=== PATIENT | female | born 1980 | race Caucasian/White ===

== ENCOUNTER 2016-07-28 12:13 | Inpatient (IN) | payer BC ==
[~2016-07-28] VITALS: Ht 165.1 cm; Wt 130.6 kg
[~2016-07-28 12:13] MED LIST: NF-ESOM40C PO; RECLIPSEN PO; [UNRECOGNIZED DRUG - OTHER] PO
[2016-08-07] VITALS (7 sets, daily range): BP systolic 131–165; BP diastolic 68–83
--- OUTSIDE RECORDS SUMMARY | 2016-08-07 18:22 | XMS REPORT | Continuity of Care Document ---
Author Author Brooke Cox Address Unknown Phone Unavailable Care Team Providers Care Ink Grinder Name Role Phone [employer] Unavailable Unavailable Problems Problem Status Onset Date Classification Date Reported Comments Source No data available for this section Problem 07/18/2015 [facility] Medications Allergies, Adverse Reactions, Alerts Immunizations Immunization Date Given Site Status Last Updated Comments Source No data available for this section No data available for this section [facility]. Results Vital Signs Encounters Location Location Details Encounter Type Encounter Number Reason For Visit Attending Provider ADM Date DC Date Status Source [facility] [id number] Outpatient [id number] Efrain Starkey 07/14/2015 07/14/2015 Active [facility]. Procedures Procedure Code Date Perfomer Comments Source No data available for this section [facility]. Plan of Care Social History Assessment and Plan Family History Value Date Source Advance Directives Order Name Results Value Date Source
[2016-08-07] MEDS ORDERED: D5 LR IV SOLUTION 0 ML IV ONE (18:49)
[2016-08-07 19:10] LABS: BASOPHILS % (AUTO) 0 % (0-10); EOSINOPHILS # (AUTO) 0.1 10^3/uL (0.0-0.3); EOSINOPHILS % (AUTO) 1 % (0-10); LYMPHOCYTES # (AUTO) 2.9 X 10^3 (1.0-4.0); LYMPHOCYTES % (AUTO) 22 % (12-44); MEAN CORPUSCULAR HEMOGLOBIN 29 PG (25-34); MEAN CORPUSCULAR HGB CONC 33 G/DL (32-36); MEAN CORPUSCULAR VOLUME 89 FL (80-99); MEAN PLATELET VOLUME 9.4 FL (7.4-10.4); MONOCYTES # (AUTO) 0.5 X 10^3 (0.0-1.0); MONOCYTES % (AUTO) 4 % (0-12); NEUTROPHILS # (AUTO) 9.7 X 10^3 (1.8-7.8); NEUTROPHILS % (AUTO) 73 % (42-75); PLATELET COUNT 371 10^3/uL (130-400); RED BLOOD COUNT 4.01 10^6/uL (4.35-5.85); RED CELL DISTRIBUTION WIDTH 14.5 % (10.0-14.5); WHITE BLOOD COUNT 13.3 10^3/uL (4.3-11.0)
[2016-08-07] MEDS ORDERED: LACTATED RINGERS 1,000 ML IV SCH (19:39)
[2016-08-07 19:41] LABS: ALANINE AMINOTRANSFERASE 11 U/L (0-55); ALBUMIN 3.1 G/DL (3.2-4.5); ANION GAP 13 MMOL/L (5-14); ASPARTATE AMINO TRANSFERASE 13 U/L (5-34); BILIRUBIN,TOTAL 0.2 MG/DL (0.1-1.0); BLOOD UREA NITROGEN 9 MG/DL (7-18); BUN/CREATININE RATIO 12; CALCIUM 9.2 MG/DL (8.5-10.1); CARBON DIOXIDE 18 MMOL/L (21-32); CHLORIDE 108 MMOL/L (98-107); CREATININE SERUM 0.73 MG/DL (0.60-1.30); GFR ESTIMATED > 60; GLUCOSE 100 MG/DL (70-105); POTASSIUM 3.6 MMOL/L (3.6-5.0); SODIUM 139 MMOL/L (135-145); TOTAL PROTEIN 6.3 G/DL (6.4-8.2); URIC ACID 5.9 MG/DL (2.6-7.2)
[2016-08-07] MEDS ORDERED: TERBUTALINE INJ 1 MG/ML (BRETHINE) AMP SC PRN (19:45)
[2016-08-07] MEDS ORDERED: MISOPROSTOL 100 MCG (CYTOTEC) TAB PO ONE (19:45)
[2016-08-07] MEDS ORDERED: D5 LR IV SOLUTION 1,000 ML IV ONE (20:19)
[2016-08-07] MEDS: D5 LR IV SOLUTION 1,000 ML IV SCH (20:30)
[2016-08-07] MEDS ORDERED: PREN1TAB19 PO (20:37)
[2016-08-07] MEDS ORDERED: LANS30CA43 PO (20:37)
[2016-08-07] MEDS ORDERED: ERGO400C PO (20:37)
[2016-08-07] MEDS ORDERED: CYCL10TA9 PO (20:37)
[2016-08-07] MEDS ORDERED: METF-478 PO (20:37)
[2016-08-07] MEDS ORDERED: LEVO25TA5 PO (20:37)
[2016-08-08] VITALS (45 sets, daily range): BP systolic 122–163; BP diastolic 63–99
[2016-08-08] MEDS: MISOPROSTOL 100 MCG (CYTOTEC) TAB PO SCH ×2 (00:30→04:30)
[2016-08-08] MEDS: D5 LR IV SOLUTION 1,000 ML IV SCH ×2 (04:27→12:22)
[2016-08-08] MEDS ORDERED: OXYTOCIN/NORMAL SALINE 500 ML IV ONE ×3 (07:53→16:54)
[2016-08-08] MEDS ORDERED: OXYTOCIN/NORMAL SALINE 500 ML IV SCH (08:00)
--- NOTE | 2016-08-08 08:34 | History & Physical-OB ---
OB - Chief Complaint & HPI Date Date of Admission: Date of Admission: Aug 07, 2016 at 6:17 pm Chief Complaint/History OB-Reason for Admission/Chief: Induction of Labor Hx : 2 Hx Para: 0 Expected Date of Delivery: Aug 25, 2016 Gestational Age in Weeks: 37 Indication for induction: medical complication Other reason for admission: Oligohydramnios Admission Nurse Assessment Rev: Yes History of Labs O pos Antibody neg RI RPR NR HBsAg HIV NR GC neg GBS neg Allergies and Home Medications Allergies Coded Allergies: acetaminophen (Unverified Allergy, 10/28/12) Home Medications Cholecalciferol (Vitamin D3) 400 Unit Capsule 400 UNIT PO DAILY (Reported) Cyclobenzaprine HCl 10 Mg Tablet 10 MG PO HS (Reported) Lansoprazole 30 Mg Capsule.dr 30 MG PO DAILY (Reported) Levothyroxine Sodium 25 Mcg Tablet 25 MCG PO DAILY (Reported) Metformin HCl 500 Mg Tab.er.24 1,000 MG PO DAILY (Reported) Vit/Iron Fumarate/FA 1 Each Tablet 1 EACH PO DAILY (Reported) OB - History Hx of Present Care: Yes Ultrasounds: Abnormal US findings Abnormal Ultrasound Findings: Oligohydramnios 4.6 cm Obstetrical Complications: Gestational Hypertension Medical Complications: Other (Obesity) Patient Past Medical History hypothyroidism, PCOS, insulin resistance Social History/Family History Recent Infectious Disease Expo: No Alcohol Use: Denies Use Recreational Drug Use: No Immunizations Date of Influenza Vaccine: Apr 04, 2016 OB - Admission Exam Physical Exam Vitals: Vital Signs 08/08/16 05:44 Temp 98.5 Pulse 79 Resp 20 B/P 154/74 O2 Delivery Room Air HEENT: NCAT Heart: Rhythm Normal Lungs: Clear Abdomen: Gravid Extremities: Normal Reflexes: Normal Cervical Dilatation: Fingertip Effacement: 50% Station: -2 Membranes: Intact Heart Rate: 130's Accelerations: Accelerations Present Decelerations: No Decelerations Short Term Variability: Present Data Warehouse Specialist Variability: Average (6-25) Contractions on Admission: >10 Minutes Apart Intensity: Mild Strickland Scoring Tool (Modified) Dilation (cm): 0/Closed (0) Effacement (%): 51-79% (2) Descent/Station: -2 (1) Cervix Consistency: Soft (2) Cervix Position: Middle/Mid-Position (1) Strickland Score: 5 Labs Laboratory Tests Test 08/07/16 18:30 08/07/16 18:55 Range/Units Urine Creatinine 40 30-125 MG/DL Urine Protein < 6 L 6-12 MG/DL Urine Protein/Creatinine Ratio Alanine Aminotransferase (ALT/SGPT) 11 0-55 U/L Albumin 3.1 L 3.2-4.5 G/DL Alkaline Phosphatase 99 40-136 U/L Anion Gap 13 5-14 MMOL/L Aspartate Amino Transf (AST/SGOT) 13 5-34 U/L BUN/Creatinine Ratio 12 Basophils # (Auto) 0.0 0.0-0.1 10^3/uL Basophils (%) (Auto) 0 0-10 % Blood Urea Nitrogen 9 7-18 MG/DL Calcium Level 9.2 8.5-10.1 MG/DL Carbon Dioxide Level 18 L 21-32 MMOL/L Chloride Level 108 H 98-107 MMOL/L Creatinine 0.73 0.60-1.30 MG/DL Eosinophils # (Auto) 0.1 0.0-0.3 10^3/uL Eosinophils (%) (Auto) 1 0-10 % Estimat Glomerular Filtration Rate > 60 Glucose Level 100 70-105 MG/DL Hematocrit 36 35-52 % Hemoglobin 11.8 11.5-16.0 G/DL Lymphocytes # (Auto) 2.9 1.0-4.0 X 10^3 Lymphocytes (%) (Auto) 22 12-44 % Mean Corpuscular Hemoglobin 29 25-34 PG Mean Corpuscular Hemoglobin Concent 33 32-36 G/DL Mean Corpuscular Volume 89 80-99 FL Mean Platelet Volume 9.4 7.4-10.4 FL Monocytes # (Auto) 0.5 0.0-1.0 X 10^3 Monocytes (%) (Auto) 4 0-12 % Neutrophils # (Auto) 9.7 H 1.8-7.8 X 10^3 Neutrophils (%) (Auto) 73 42-75 % Platelet Count 371 130-400 10^3/uL Potassium Level 3.6 3.6-5.0 MMOL/L Red Blood Count 4.01 L 4.35-5.85 10^6/uL Red Cell Distribution Width 14.5 10.0-14.5 % Sodium Level 139 135-145 MMOL/L Total Bilirubin 0.2 0.1-1.0 MG/DL Total Protein 6.3 L 6.4-8.2 G/DL Uric Acid 5.9 2.6-7.2 MG/DL White Blood Count 13.3 H 4.3-11.0 10^3/uL OB - Assessment/Plan/Diagnosis Assessment Assessment: induction of labor Plan Induction Method: per Misoprostol Protocol Discharge Diagnosis Diagnosis: 36 yo @ 37.4 Oligohydramnios GHTN Hypothyroidism Insulin resistance GBS neg BELINDA TEJADA DO Aug 08, 2016 8:34 am
[2016-08-08] MEDS ORDERED: SUFENTA 0.6MCG/ML BUPIVA 0.125 100 ML ONE (13:09)
[2016-08-08] MEDS ORDERED: FAMOTIDINE 20MG/2ML IV (PEPCID) IVP ONE (13:30)
[2016-08-08] MEDS ORDERED: LACTATED RINGERS 1,000 ML IV SCH (13:56)
[2016-08-08] MEDS ORDERED: ONDANSETRON 4 MG/2 ML (SDV) Z0FRAN IV PRN (14:00)
[2016-08-08] MEDS ORDERED: diphenhydrAMINE 50 MG/ML INJ (BENADRYL) IV PRN (14:00)
[2016-08-08] MEDS ORDERED: NALOXONE 0.4 MG/ML 1 ML (NARCAN) VIAL IV PRN (14:00)
[2016-08-08] MEDS ORDERED: EPIDURAL (SUFENTA 0.6MCG/ML BUPIVA 0.125%) 100 ML BAG EPI PRN (14:00)
[2016-08-08] MEDS ORDERED: METOCLOPRAMIDE INJ 10 MG/2 ML (REGLAN) ONE (14:55)
[2016-08-08] MEDS ORDERED: ceFAZolin 2 GM/50 ML NS 50 ML IV ONE ×2 (14:55→16:30)
[2016-08-08] MEDS ORDERED: CITRIC ACID/SOB CIT (BICITRA) 30 ML UDC ONE (14:55)
[2016-08-08] MEDS ORDERED: fentaNYL INJECTION 100 MCG/2 ML AMP ONE (15:34)
[2016-08-08] MEDS ORDERED: BUPIVACAINE 0.5% 30 ML (SENSORCAINE) VIAL ONE (15:46)
[2016-08-08] MEDS ORDERED: LIDOCAINE PF 2% 10 ML (XYLOCAINE) AMP ONE (15:46)
[2016-08-08] MEDS ORDERED: KETOROLAC 30 MG/ML VIAL ONE (16:16)
[2016-08-08] MEDS ORDERED: ONDANSETRON 4 MG/2 ML (SDV) Z0FRAN ONE (16:26)
[2016-08-08] MEDS ORDERED: LACTATED RINGERS 1,000 ML IV ONE (16:27)
[2016-08-08] MEDS ORDERED: CITRIC ACID/SOB CIT (BICITRA) 30 ML UDC PO ONE (16:30)
[2016-08-08] MEDS ORDERED: FAMOTIDINE 20MG/2ML IV (PEPCID) IV ONE (16:30)
[2016-08-08] MEDS ORDERED: METOCLOPRAMIDE INJ 10 MG/2 ML (REGLAN) IV ONE (16:30)
[2016-08-08] MEDS ORDERED: CARBOPROST (HEMABATE) 250 MCG/ML AMP IM ONE ×2 (16:33→17:15)
[2016-08-08] MEDS ORDERED: MISOPROSTOL 200 MCG (CYTOTEC) TABLET ONE (16:35)
--- NOTE | 2016-08-08 17:08 | Progress Note-Pre Operative ---
Pre-Operative Progress Note H&P Reviewed The H&P was reviewed, patient examined and no changes noted. Date H&P Reviewed: Aug 08, 2016 Time H&P Reviewed: 17:07 Pre-Operative Diagnosis: 37 week IUP, Oligohydramnios, JANUSZ, Remote from delivery BELINDA TEJADA DO Aug 08, 2016 17:08
--- NOTE | 2016-08-08 17:10 | Discharge Inst-Women's Service ---
Discharge Inst-Women's Serv Depart Medication/Instructions New, Converted or Re-Newed RX: RX on Chart Consults/Follow Up Additional Follow Up: Yes Orders/Referrals Dr. Ocampo in 7-10 weeks, 8 weeks as well Activity Activity: Activity as Tolerated Driving Instructions: No Driving for 1 Week NO SMOKING: NO SMOKING Nothing Inside Vagina: No Douching, No [place], No Tampons Diet Discharge Diet: No Restrictions Symptoms to Report to : Bleeding Excessive, Pain Increased, Fever Over 101 Degrees F, Vaginal Bleeding Increase, Questions/Concerns For Any Problems or Questions: Contact Your Physician Skin/Wound Care Infection Signs and Symptoms: Increased Redness, Foul Odor of Wound, Increased Drainage, Skin Itchy or Has a Rash, Increased Swelling, Temperature Above 101 F Operative Area Clean and Dry: Keep Incision Clean/Dry Stitches/[place]/Dermabond: Dermabond, [facility] [place] Bathing Instructions: BELINDA Rebolledo DO Aug 08, 2016 17:10
[2016-08-08] MEDS ORDERED: MISOPROSTOL 200 MCG (CYTOTEC) TABLET PR ONE (17:15)
[2016-08-08] MEDS ORDERED: IBUPROFEN 600 MG (MOTRIN) TAB PO SCH (17:15)
[2016-08-08] MEDS ORDERED: TETANUS,DIPTH,PERTUSS P/F (BOOSTRIX) 0.5 ML VIAL IM SCH (17:15)
[2016-08-08] MEDS ORDERED: MEASLES,MUMPS,RUBELLA 1 EA INJ SC SCH (17:15)
[2016-08-08] MEDS ORDERED: HYDROmorphone (DILAUDID) 2 MG/ML VIAL IVP PRN (17:15)
[2016-08-08] MEDS ORDERED: ONDANSETRON 4 MG/2 ML (SDV) Z0FRAN IVP PRN (17:15)
[2016-08-08] MEDS: KETOROLAC 30 MG/ML VIAL IVP SCH ×2 (17:23→23:10)
[2016-08-08] MEDS: OXYTOCIN/NORMAL SALINE 500 ML IV SCH ×2 (18:20→22:20)
[2016-08-08] MEDS: CATHETER FLUSH 10 ML SYR IV SCH (22:00)
[2016-08-08] MEDS: DOCUSATE SODIUM 100 MG (COLACE) CAP PO SCH (23:11)
[2016-08-09] MEDS: OXYTOCIN/NORMAL SALINE 500 ML IV SCH ×2 (02:30→05:45)
[2016-08-09 03:35] VITALS: BP 132/80
[2016-08-09] MEDS: HYDROcodone/APAP 5 MG/325 MG (LORTAB) TAB PO PRN ×4 (03:35→23:04)
[2016-08-09 05:28] LABS: BASOPHILS % (AUTO) 0 % (0-10); EOSINOPHILS # (AUTO) 0.1 10^3/uL (0.0-0.3); EOSINOPHILS % (AUTO) 1 % (0-10); LYMPHOCYTES # (AUTO) 2.4 X 10^3 (1.0-4.0); LYMPHOCYTES % (AUTO) 16 % (12-44); MEAN CORPUSCULAR HEMOGLOBIN 29 PG (25-34); MEAN CORPUSCULAR HGB CONC 33 G/DL (32-36); MEAN CORPUSCULAR VOLUME 89 FL (80-99); MONOCYTES # (AUTO) 0.9 X 10^3 (0.0-1.0); MONOCYTES % (AUTO) 6 % (0-12); NEUTROPHILS # (AUTO) 11.6 X 10^3 (1.8-7.8); NEUTROPHILS % (AUTO) 77 % (42-75); PLATELET COUNT 316 10^3/uL (130-400); RED BLOOD COUNT 3.47 10^6/uL (4.35-5.85); RED CELL DISTRIBUTION WIDTH 14.6 % (10.0-14.5)
[2016-08-09] MEDS: KETOROLAC 30 MG/ML VIAL IVP SCH ×2 (06:25→12:19)
[2016-08-09] MEDS: CATHETER FLUSH 10 ML SYR IV SCH (06:25)
[2016-08-09 07:45] VITALS: BP 96/50
--- NOTE | 2016-08-09 07:48 | Postpartum Progress Note ---
Post Op Note in error - see Dr. Ocampo's progress note for today Vitals - Labs Vital Signs - I&O Vital Signs Date Time Temp Pulse Resp B/P (MAP) Pulse Ox O2 Delivery O2 Flow Rate FiO2 08/09/16 03:35 98.3 101 20 132/80 97 Room Air 08/08/16 23:20 98.6 108 20 129/81 96 Room Air 08/08/16 20:22 98.6 107 20 130/79 95 Room Air 08/08/16 16:00 98.1 100 20 146/81 98 Room Air 08/08/16 15:45 99.3 105 20 146/83 99 Room Air 08/08/16 15:30 99.1 103 20 146/88 95 Room Air 08/08/16 15:15 90 20 152/86 96 Room Air 08/08/16 15:00 93 20 149/90 98 Room Air 08/08/16 14:45 91 20 140/86 97 Room Air 08/08/16 14:30 98.0 106 20 145/80 100 Room Air 08/08/16 14:15 82 20 147/74 99 Room Air 08/08/16 14:00 98.1 93 20 149/81 98 Room Air 08/08/16 13:55 89 20 152/82 100 Room Air 08/08/16 13:50 85 20 133/88 96 Room Air 08/08/16 13:47 79 20 130/82 97 Room Air 08/08/16 13:45 92 20 122/72 97 Room Air 08/08/16 13:41 89 20 146/91 97 Room Air 08/08/16 13:35 78 20 148/96 98 Room Air 08/08/16 13:30 90 20 156/92 Room Air 08/08/16 13:15 83 20 147/87 Room Air 08/08/16 13:00 98.5 83 20 142/86 Room Air 08/08/16 12:45 85 20 152/92 Room Air 08/08/16 12:30 91 20 147/90 Room Air 08/08/16 12:15 98.6 88 20 142/86 Room Air 08/08/16 12:00 98.4 100 20 155/99 Room Air 08/08/16 11:45 95 20 155/96 Room Air 08/08/16 11:30 91 20 152/94 Room Air 08/08/16 11:15 98.8 85 20 159/96 Room Air 08/08/16 11:00 90 20 158/90 Room Air 08/08/16 10:45 97 20 163/92 Room Air 08/08/16 10:30 92 20 159/92 Room Air 08/08/16 10:15 87 20 159/92 Room Air 08/08/16 10:00 98.0 88 20 155/94 Room Air 08/08/16 09:45 90 20 153/96 Room Air 08/08/16 09:30 86 20 141/91 Room Air 08/08/16 09:15 98.6 86 20 141/87 Room Air 08/08/16 09:00 83 20 145/91 Room Air 08/08/16 08:45 86 20 141/94 Room Air 08/08/16 08:30 86 20 156/99 Room Air 08/08/16 08:15 20 Room Air 08/08/16 08:00 86 20 136/90 Room Air I & O 08/09/16 07:00 Intake Total 6650 ml Output Total 2150 ml Balance 4500 ml Labs Laboratory Tests 08/09/16 05:15: White Blood Count 15.0H, Red Blood Count 3.47L, Hemoglobin 10.2L, Hematocrit 31L , Mean Corpuscular Volume 89, Mean Corpuscular Hemoglobin 29, Mean Corpuscular Hemoglobin Concent 33, Red Cell Distribution Width 14.6H, Platelet Count 316, Mean Platelet Volume 9.0, Neutrophils (%) (Auto) 77H, Lymphocytes (%) (Auto) 16 , Monocytes (%) (Auto) 6, Eosinophils (%) (Auto) 1, Basophils (%) (Auto) 0, Neutrophils # (Auto) 11.6H, Lymphocytes # (Auto) 2.4, Monocytes # (Auto) 0.9, Eosinophils # (Auto) 0.1, Basophils # (Auto) 0.0 NICK MEDINA MD Aug 09, 2016 07:48
[2016-08-09] MEDS: LEVOTHYROXINE 25 MCG (LEVOTHROID) TAB PO SCH (08:00)
[2016-08-09] MEDS: DOCUSATE SODIUM 100 MG (COLACE) CAP PO SCH ×2 (08:11→21:54)
--- NOTE | 2016-08-09 10:26 | Progress Note-Standard ---
Standard Progress Note Progress Notes/Assess & Plan Progress/Assessment & Plan Patient doing well POD 1 PLTCS. Reports good pain control. Ambulating and voiding freely. Lochia light. Vital Sign - Last 24 Hours 08/08/16 08/08/16 08/08/16 08/08/16 10:30 10:45 11:00 11:15 Temp 98.8 Pulse 92 97 90 85 Resp 20 20 20 20 B/P (MAP) 159/92 163/92 158/90 159/96 O2 Delivery Room Air Room Air Room Air Room Air 08/08/16 08/08/16 08/08/16 08/08/16 11:30 11:45 12:00 12:15 Temp 98.4 98.6 Pulse 91 95 100 88 Resp 20 20 20 20 B/P (MAP) 152/94 155/96 155/99 142/86 O2 Delivery Room Air Room Air Room Air Room Air 08/08/16 08/08/16 08/08/16 08/08/16 12:30 12:45 13:00 13:15 Temp 98.5 Pulse 91 85 83 83 Resp 20 20 20 20 B/P (MAP) 147/90 152/92 142/86 147/87 O2 Delivery Room Air Room Air Room Air Room Air 08/08/16 08/08/16 08/08/16 08/08/16 13:30 13:35 13:41 13:45 Pulse 90 78 89 92 Resp 20 20 20 20 B/P (MAP) 156/92 148/96 146/91 122/72 Pulse Ox 98 97 97 O2 Delivery Room Air Room Air Room Air Room Air 08/08/16 08/08/16 08/08/16 08/08/16 13:47 13:50 13:55 14:00 Temp 98.1 Pulse 79 85 89 93 Resp 20 20 20 20 B/P (MAP) 130/82 133/88 152/82 149/81 Pulse Ox 97 96 100 98 O2 Delivery Room Air Room Air Room Air Room Air 08/08/16 08/08/16 08/08/16 08/08/16 14:15 14:30 14:45 15:00 Temp 98.0 Pulse 82 106 91 93 Resp 20 20 20 20 B/P (MAP) 147/74 145/80 140/86 149/90 Pulse Ox 99 100 97 98 O2 Delivery Room Air Room Air Room Air Room Air 08/08/16 08/08/16 08/08/16 08/08/16 15:15 15:30 15:45 16:00 Temp 99.1 99.3 98.1 Pulse 90 103 105 100 Resp 20 20 20 20 B/P (MAP) 152/86 146/88 146/83 146/81 Pulse Ox 96 95 99 98 O2 Delivery Room Air Room Air Room Air Room Air 08/08/16 08/08/16 08/09/16 08/09/16 20:22 23:20 03:35 07:45 Temp 98.6 98.6 98.3 97.5 Pulse 107 108 101 74 Resp 20 20 20 B/P (MAP) 130/79 129/81 132/80 96/50 Pulse Ox 95 96 97 O2 Delivery Room Air Room Air Room Air Room Air Intake and Output 08/08/16 08/08/16 08/09/16 14:59 22:59 06:59 Intake Total 1000 ml 3650 ml 2000 ml Output Total 1200 ml 950 ml Balance 1000 ml 2450 ml 1050 ml Laboratory Tests Test 08/09/16 05:15 Range/Units White Blood Count 15.0 H 4.3-11.0 10^3/uL Red Blood Count 3.47 L 4.35-5.85 10^6/uL Hemoglobin 10.2 L 11.5-16.0 G/DL Hematocrit 31 L 35-52 % Mean Corpuscular Volume 89 80-99 FL Mean Corpuscular Hemoglobin 29 25-34 PG Mean Corpuscular Hemoglobin Concent 33 32-36 G/DL Red Cell Distribution Width 14.6 H 10.0-14.5 % Platelet Count 316 130-400 10^3/uL Mean Platelet Volume 9.0 7.4-10.4 FL Neutrophils (%) (Auto) 77 H 42-75 % Lymphocytes (%) (Auto) 16 12-44 % Monocytes (%) (Auto) 6 0-12 % Eosinophils (%) (Auto) 1 0-10 % Basophils (%) (Auto) 0 0-10 % Neutrophils # (Auto) 11.6 H 1.8-7.8 X 10^3 Lymphocytes # (Auto) 2.4 1.0-4.0 X 10^3 Monocytes # (Auto) 0.9 0.0-1.0 X 10^3 Eosinophils # (Auto) 0.1 0.0-0.3 10^3/uL Basophils # (Auto) 0.0 0.0-0.1 10^3/uL Incision: c/d/i tanisha in place Diagnosis: POD 1 PLTCS Acute blood loss anemia GHTN Obesity P: COntinue routine PO care replace iron Will consider starting antihypertensive if BP issues continue. BELINDA TEJADA DO Aug 09, 2016 10:26 am
--- NOTE | 2016-08-09 10:54 | OPERATIVE REPORT ---
PROCEDURE PHYSICIAN: CHUCKY OCAMPO DATE OF PROCEDURE: 08/08/2016 PREOPERATIVE DIAGNOSIS: 1. 36-year-old G2, P0, at 37 weeks gestation. 2. Oligohydramnios. 3. intolerance of labor. 4. Remote from delivery. 5. Morbid obesity. POSTOPERATIVE DIAGNOSES: 1. 36-year-old G2, P0, at 37 weeks gestation. 2. Oligohydramnios. 3. intolerance of labor. 4. Remote from delivery. 5. Morbid obesity. 6. Uterine atony. PROCEDURE: Low-transverse primary low transverse section. SURGEON: Dr. Chucky Ocampo. COMPUTER ARTIST: Dr. Grazyna Lunsford, who was required for assistance and retraction due to vital structures needing to be visualized and assisted with ANESTHESIA: Epidural which was bolused. ESTIMATED BLOOD LOSS: 600 mL. URINE OUTPUT: 250 mL, clear at the end of the procedure. FLUIDS: 1900 mL lactated ringer solution. FINDINGS: Findings is a live male infant weighing 5 pounds, 5 ounces, Apgars of 5 and 8. Grossly normal appearing uterus, bilateral fallopian tubes, and ovaries. SPECIMEN SENT: Placenta. INDICATIONS FOR THE PROCEDURE: This 36-year-old female was induced yesterday at 37 weeks due to oligohydramnios seen on ultrasound. Biophysical profile was performed at that time due to ongoing issues with worsening gestational hypertension. She did not have significant proteinuria. I did not diagnose the patient with preeclampsia but at that point due to oligohydramnios I recommended with the patient proceeding with delivery due to increased risk of stillbirth with oligohydramnios. The risk of the induction was discussed with the patient in detail including increased risk of and unfavorable circumstance of her cervix which her cervix at that point was very unfavorable. She had a Strickland score of 5. That evening I started the induction with oral misoprostol overnight to induce cervical ripening as well as spontaneous ruptured membranes occurred at 5 and the morning. At approximately 0830, I started IV Pitocin to augment her labor at that point and induce a regular contraction pattern. Due to patient's body habitus it is difficult to trace uterine contractions. However, we were able to determine throughout the day that she did become in a regular active, conducive pattern, contractions every 2 to 3 minutes. Her Pitocin reached level of 10 milliunits per minute at which point no change was noted and this was into the afternoon at approximately 2 o'clock in the afternoon at which point she obtained an epidural for analgesia purposes as well as to hopefully help the patient relaxed and allow the presenting part of the to fall into the pelvis with relaxation. After the epidural the patient was noted to have adequate pain relief. I rechecked the patient at 2 hours later with adequate contraction pattern. There was still no change noted at that point. Shortly thereafter there began to be evidence of compromise with minimal variability to moderate variability as well as some questionable late and variable decelerations. Due to the patient being remote from delivery and these signs of intolerance as well as the oligohydramnios which is another concern for compromise, I discussed with the patient proceeding with primary . The risk of the procedure was discussed with the patient in detail including risk of bleeding, infection, damaging any of the surrounding structures including but not limited to the bowel, bladder, ureter, kidneys. After all of her questions were answered, consent was obtained. The patient was taken to the operating room. OPERATIVE REPORT IN DETAIL: Once in the operating room, epidural analgesia was found to be adequate. She was in supine position with leftward tilt, prepped and draped in the normal sterile fashion. A Pfannenstiel skin incision is made with a knife and carried down to the underlying fascia using Bovie cautery. The fascial incision is extended laterally using Bovie cautery. The superior aspect of the fascial incision was then grasped with Holly clamps, tented upward and dissected off the underlying rectus muscles. The anterior aspect of the fascial incision was then grasper with Holly clamps, tented upward and dissected off the underlying rectus muscles. The rectus muscles are dissected down the midline using blunt traction which exposes the peritoneum which I enter bluntly using my fingers and then extend the peritoneal incision superior and inferiorly using the Metzenbaum scissors. Care was taken to steer clear of the bowel and bladder. I then place the Alex ring retractor into the peritoneal incision which offers excellent lateral sidewall retraction. I then proceed with my incision in the uterus with a low transverse fashion to the vesicouterine peritoneum, bluntly dissecting the peritoneum off of the lower uterine segment creating a bladder flap. I then proceed with my myotomy until entry into the uterus is confirmed using my digits bluntly. I then extend the uterine incision laterally and superiorly using banded scissors. The is found in vertex occiput posterior presentation. I elevate the infant's head up to the incision with gentle fundal pressure; the 's head is delivered through the incision where it is bulb suctioned both oropharynx and nares. I then deliver the anterior posterior shoulders and infant is then brought onto the operative field where the cord is dually clamped and cut. The infant is handed off to the awaiting pediatric team in attendance. The cord blood was collected; three vessel cord with an intact placenta is delivered spontaneously thereafter. IV Pitocin is initiated to facilitate uterine contractions. The uterus remains boggy. Therefore, I have anesthesia administer 215 mcg of carboprost IM. There is a slight improvement in the uterine tone at that point. I proceed with closing the uterine incision using 0 Vicryl suture running lock fashion. A second layer of imbricating 0 Monocryl is placed. Excellent hemostasis is noted from the incision at that point. However, the uterus does remain slightly boggy. To ensure uterine tone I have nursing place 100 mcg of Cytotec rectally at which point I begin closing the peritoneum using 3-0 Vicryl suture in a running fashion. The rectus muscles are reapproximated using 3-0 Vicryl suture in an interrupted fashion. The fascia was reapproximated using 0 Vicryl suture in a running fashion. Subcutaneous tissues reapproximated using 3-0 plain interrupted subcutaneous stitch and skin reapproximated using tanisha. A sterile dressing and adhesive white tape. IV Pitocin is continued for 2 separate 30 milliunits bags. Reeder catheter was left in place. The patient tolerated the procedure well and was taken to recovery area in stable condition. Lap and sponge counts correct at the end of the procedure, instrument count is correct as well. 2 grams Ancef were given preoperatively for infection prophylaxis. Job ID: [id number] Dictated Date: 08/08/2016 17:40:45 Commercial Reporter Date: 08/09/2016 10:27:19 / forrest VILLA
[2016-08-09] MEDS ORDERED: PATIENT MAY USE OWN MED,SINGLE MED PO SCH (11:15)
[2016-08-09 12:30] VITALS: BP 156/90
[2016-08-09] MEDS: LANSOPRAZOLE 30 MG CAPSULE PO SCH (15:59)
[2016-08-09 16:50] VITALS: BP 118/74
[2016-08-09] MEDS: IBUPROFEN 600 MG (MOTRIN) TAB PO SCH ×2 (18:33→23:36)
[2016-08-09 21:54] VITALS: BP 146/91
[2016-08-10 05:00] VITALS: BP 140/85
[2016-08-10] MEDS: IBUPROFEN 600 MG (MOTRIN) TAB PO SCH ×3 (05:12→18:57)
[2016-08-10] MEDS ORDERED: LEVOTHYROXINE 25 MCG (LEVOTHROID) TAB PO SCH (06:30)
[2016-08-10 08:30] VITALS: BP 139/77
[2016-08-10] MEDS: LABETALOL 200 MG (NORMODYNE) TAB PO SCH ×2 (08:46→21:08)
[2016-08-10] MEDS: DOCUSATE SODIUM 100 MG (COLACE) CAP PO SCH ×2 (08:46→21:08)
[2016-08-10] MEDS: LANSOPRAZOLE 30 MG CAPSULE PO SCH (08:49)
[2016-08-10] MEDS: LEVOTHYROXINE 25 MCG (LEVOTHROID) TAB PO SCH (08:49)
--- NOTE | 2016-08-10 09:37 | Progress Note-Standard ---
Standard Progress Note Progress Notes/Assess & Plan Progress/Assessment & Plan Patient continues to do well POD 2 PLTCS. Reports good pain control. Ambulating and voiding freely. Lochia light. Having labile bp elevations Vital Sign - Last 24 Hours 08/09/16 08/09/16 08/09/16 08/10/16 12:30 16:50 21:54 05:00 Temp 97.5 97.1 98.3 98.2 Pulse 91 96 91 84 Resp 20 20 20 20 B/P (MAP) 156/90 118/74 146/91 140/85 Pulse Ox 98 96 98 98 O2 Delivery Room Air Room Air Room Air Room Air 08/10/16 08:30 Temp 98.5 Pulse 84 Resp 18 B/P (MAP) 139/77 Pulse Ox 96 O2 Delivery Room Air Intake and Output 08/09/16 08/09/16 08/10/16 15:00 23:00 07:00 Intake Total 600 ml 400 ml Output Total 1375 ml 1400 ml Balance -775 ml -1000 ml Incision: c/d/i tanisha in place Diagnosis: POD 2 PLTCS Acute blood loss anemia GHTN Obesity P: COntinue routine PO care replace iron Starting labetalol today, will consider dc later today or tomorrow pending bp control. BELINDA TEJADA DO Aug 10, 2016 9:37 am
[2016-08-10 12:00] VITALS: BP 123/75
[2016-08-10] MEDS ORDERED: SIMETHICONE 80 MG (MYLICON) CHEW ONE (13:12)
[2016-08-10] MEDS: SIMETHICONE 80 MG (MYLICON) CHEW PO PRN ×2 (13:18→18:56)
[2016-08-10 16:30] VITALS: BP 129/77
[2016-08-10 21:11] VITALS: BP 132/84
[2016-08-11] MEDS: IBUPROFEN 600 MG (MOTRIN) TAB PO SCH ×3 (00:01→14:24)
[2016-08-11 03:30] VITALS: BP 141/84
[2016-08-11] MEDS ORDERED: LABE200T3 PO (08:53)
[2016-08-11] MEDS ORDERED: HYDR-3812 PO (08:54)
[2016-08-11] MEDS ORDERED: SIME80TA16 PO (08:54)
[2016-08-11] MEDS ORDERED: DOCU100C37 PO (08:54)
[2016-08-11] MEDS ORDERED: IBUP-1773 PO (08:54)
--- NOTE | 2016-08-11 08:55 | Progress Note-Standard ---
Standard Progress Note Progress Notes/Assess & Plan Progress/Assessment & Plan Patient continues to do well POD 3 PLTCS. Reports good pain control. Ambulating and voiding freely. Lochia light. Having better BP control Vital Sign - Last 24 Hours 08/10/16 08/10/16 08/10/16 08/11/16 12:00 16:30 21:11 03:30 Temp 98.8 98.6 98.3 98.6 Pulse 98 104 105 74 Resp 18 18 18 18 B/P (MAP) 123/75 129/77 132/84 141/84 Pulse Ox 96 98 98 100 O2 Delivery Room Air Room Air Room Air Room Air Intake and Output 08/10/16 08/10/16 08/11/16 15:00 23:00 07:00 Intake Total 1040 ml 300 ml Output Total 1450 ml 800 ml Balance -410 ml -500 ml Incision: c/d/i tanisha in place Diagnosis: POD 3 PLTCS Acute blood loss anemia GHTN Obesity P: COntinue routine PO care replace iron DC today BELINDA TEJADA DO Aug 11, 2016 8:55 am
[2016-08-11 09:34] VITALS: BP 128/76
[2016-08-11] MEDS: LABETALOL 200 MG (NORMODYNE) TAB PO SCH (10:34)
[2016-08-11] MEDS: LANSOPRAZOLE 30 MG CAPSULE PO SCH (10:34)
[2016-08-11] MEDS: DOCUSATE SODIUM 100 MG (COLACE) CAP PO SCH (10:34)
[2016-08-11] MEDS: LEVOTHYROXINE 25 MCG (LEVOTHROID) TAB PO SCH (10:34)
[2016-08-11 14:26] VITALS: BP 130/78
--- NOTE | 2016-08-17 10:08 | DISCHARGE SUMMARY ---
DATE OF DISCHARGE: 2016 ADMISSION DIAGNOSES: 1. 36-year-old G2, P0, at 37 weeks and 4 days gestation. 2. Oligohydramnios. 3. Gestational hypertension. 4. Hypothyroidism. 5. Insulin resistance. 6. GBS negative. DISCHARGE DIAGNOSIS: 08/11/2016 DISCHARGE DIAGNOSIS: 1. 36-year-old G2, P0, at 37 weeks and 4 days gestation. 2. Oligohydramnios. 3. Gestational hypertension. 4. Hypothyroidism. 5. Insulin resistance. 6. GBS negative. 7. Postop day 3, primary low transverse section. ATTENDING PHYSICIAN: Dr. Chucky Ocampo. SERVICE: [facility]. HOSPITAL COURSE IS FOLLOWS: Please see admission H\T\P from 08/08/2016 for complete details, pertaining to patient's admission, presentation, indications for induction and plan of care. Please see operative report from 08/09/2016 for complete details, pertaining to patient's operative procedure in detail as well as indications therein. Postoperative course for this patient was fairly routine. Postop day one, the patient was doing fairly well. Blood pressures remained fairly labile. Postoperative hemoglobin was found to drop down to 10.2. Incision was clean, dry, and intact. Acute blood loss anemia was diagnosed on the patient's serum iron supplementation. The following day due to continued labile blood pressures, labetalol 200 mg b.i.d. was started. Otherwise, the patient continued to do well. She was ambulating, voiding freely, incision remained clean, dry, and intact. Postop day 3 blood pressures were finally noted to be significantly controlled well on the labetalol. The incision continued to remain clean, dry, and intact. The patient was ambulating, voiding freely without significant pain or discomfort. Decision was made to discharge the patient home on postop day 3. She was given routine postoperative and precautions and sent home on the following medications includin. Motrin 600 mg 1 p.o. every 6 hours p.r.n. as needed for pain, number 80. 2. Labetalol 200 mg one p.o. b.i.d. number 60. 3. Simethicone 80 mg 1 p.o. at bedtime p.r.n. as needed for indigestion number 40. 4. Downing 5/325, 1 to 2 every 4 to 6 hours p.r.n. as needed for pain, number 50. 5. Colace 100 mg one p.o. b.i.d. p.r.n. as needed for constipation, number 40. She was told to continue her other home medications including her thyroid medication. Her metformin vitamin. The patient's discharge was facilitated at that point without further difficulty and all the patient's questions were answered. Job ID: [id number] Dictated Date: 08/15/2016 18:52:28 Combat Control Manager Date: 08/17/2016 09:59:59/forrest
== END 2016-08-11 14:42 | disposition home or self-care (01) | DRG 765 ==
LOC: DELPENDDIS → LDRP 08-07 18:17
PROVIDERS: ADMIT Obstetrics & Gynecology; ATTEND Obstetrics & Gynecology
PROC: 10D00Z1 Extraction of Products of Conception, Low, Open Approach (ICD-10-PCS; principal; 2016-08-08 16:10)
DX: O41.03X0 Oligohydramnios, third trimester, not applicable or unspecified (principal); O99.03 Anemia complicating the puerperium; D62 Acute posthemorrhagic anemia; O99.213 Obesity complicating pregnancy, third trimester; E66.01 Morbid (severe) obesity due to excess calories; Z68.42 Body mass index [BMI] 45.0-49.9, adult; O76 Abnormality in fetal heart rate and rhythm complicating labor and delivery; O75.89 Other specified complications of labor and delivery; O13.3 Gestational [pregnancy-induced] hypertension without significant proteinuria, third trimester; O99.283 Endocrine, nutritional and metabolic diseases complicating pregnancy, third trimester; E03.9 Hypothyroidism, unspecified; E88.81 Metabolic syndrome and other insulin resistance; E28.2 Polycystic ovarian syndrome; Z3A.37 37 weeks gestation of pregnancy; Z37.0 Single live birth
CPT/HCPCS: 36415; 80053; 82570; 84156; 84550; 85025; 86850; 86900; 86901; 88307; 94664

== ENCOUNTER → 2018-04-25 | Outpatient (CLI) | payer BC ==
[~2018-04-25] MED LIST changes: +ACHD5005 PO; +CYCL10TA9 PO; +DOCU100C37 PO; +ERGO400C PO; +IBUP-1773 PO; +LABE200T7 PO; +LANS30CA43 PO; +LEVO25TA5 PO; +METF-478 PO; +PREN1TAB19 PO; +SIME80TA16 PO
--- NOTE | 2018-04-25 17:23 | Diagnostic Imaging Report ---
Indication: Fall with medial foot and ankle pain AP, oblique and lateral views of the right foot are obtained. FINDINGS: No acute fracture or dislocation is identified. No abnormal lytic or sclerotic focus is seen, and there is no radiopaque foreign body. IMPRESSION: No acute abnormality. Dictated by: Dictated on workstation # [id number]
--- NOTE | 2018-04-25 20:20 | Diagnostic Imaging Report ---
EXAMINATION: Right ankle radiographs, 3 views. COMPARISON: None. HISTORY: 38-year-old female, fall. Ankle pain. FINDINGS: There is no identified acute fracture. The alignment of the ankle mortise is unremarkable. There is no ankle joint effusion. There is no radiopaque foreign body. There is no particularly prominent focal soft tissue swelling. The joint spaces appear well preserved. IMPRESSION: Unremarkable radiographs of the right ankle. Dictated by: Dictated on workstation # [id number]
== END ==
LOC: RAD 16:28
PROVIDERS: ATTEND Family Medicine
DX: M25.571 Pain in right ankle and joints of right foot (principal); M79.671 Pain in right foot; W19.XXXA Unspecified fall, initial encounter
CPT/HCPCS: 73610; 73630

== ENCOUNTER → 2020-06-24 | Outpatient (CLI) | payer BC ==
--- NOTE | 2020-06-24 16:33 | Diagnostic Imaging Report ---
INDICATION: patient, survey. TECHNIQUE: Multiple real-time grayscale images were obtained over the gravid uterus. COMPARISON: None during this . FINDINGS: A single live intrauterine fetus is seen measuring at 21 weeks 3 days in size. Fetus is in breech presentation. Amniotic fluid is qualitatively normal. Placenta is anterior with no evidence of previa. Distance from the tip of the placenta to the cervix was over 5 cm. heart rate is 134 BPM. Maternal adnexa were not well seen but there was no free fluid. survey demonstrates normal-appearing bladder and stomach and intracranial ventricles. Three-vessel cord and cord insertion appear normal. The four-chamber heart view and spine views were not well obtained due to position and body habitus. kidneys were also not well visualized. Biometrical measurements are as follows: Biparietal 5.03 cm, age 21 weeks 2 days. Head circumference 19.36 cm, age 21 weeks 5 days. Abdominal circumference 16.61 cm, age 21 weeks 5 days. Femur length 3.43 cm, age 20 weeks 6 days. Sonographic estimate age: 21 weeks 3 days. Sonographic estimated date of delivery: 11/01/2020. Estimated Weight: 413 gm (+/- 60 gm). LMP percentile: 76%. heart rate: 134 beats per minute. number: 1 of 1. IMPRESSION: Single live intrauterine fetus measuring 21 weeks 3 days in size, as described above. There are no detectable abnormalities, although portions of the anatomy are not well seen due to body habitus and position. Consider follow-up as clinically warranted. Dictated by: Dictated on workstation # [id number]
== END ==
LOC: RAD 15:15
PROVIDERS: ATTEND Nurse Practitioner Women's Health
DX: Z34.02 Encounter for supervision of normal first pregnancy, second trimester (principal); Z3A.21 21 weeks gestation of pregnancy
CPT/HCPCS: 76805

== ENCOUNTER 2020-10-15 08:13 | Outpatient (CLI) | payer BC ==
[~2020-10-15] VITALS: Ht 160 cm; Wt 123.0 kg
[2020-10-15] MEDS ORDERED: OMEP40CA27 PO (08:46)
[2020-10-15] MEDS ORDERED: CETI10CA PO (08:46)
[2020-10-15 08:50] VITALS: BP 124/70
[2020-10-15 08:53] VITALS: BP 124/70
[2020-10-15] MEDS ORDERED: NS IV 1000 ML 1,000 ML IV ONE (09:45)
[2020-10-15 10:07] LABS: BASOPHILS % (AUTO) 0 % (0-10); EOSINOPHILS % (AUTO) 0 % (0-10); HEMATOCRIT 35 % (35-52); HEMOGLOBIN 11.8 g/dL (11.5-16.0); LYMPHOCYTES # (AUTO) 1.5 10^3/uL (1.0-4.0); LYMPHOCYTES % (AUTO) 12 % (12-44); MEAN CORPUSCULAR HEMOGLOBIN 31 pg (25-34); MEAN CORPUSCULAR HGB CONC 34 g/dL (32-36); MEAN CORPUSCULAR VOLUME 91 fL (80-99); MEAN PLATELET VOLUME 9.3 fL (9.0-12.2); MONOCYTES # (AUTO) 0.4 10^3/uL (0.0-1.0); MONOCYTES % (AUTO) 3 % (0-12); NEUTROPHILS # (AUTO) 10.1 10^3/uL (1.8-7.8); NEUTROPHILS % (AUTO) 84 % (42-75); PLATELET COUNT 298 10^3/uL (130-400); WHITE BLOOD COUNT 12.1 10^3/uL (4.3-11.0)
[2020-10-15 10:14] LABS: BILIRUBIN,URINE NEGATIVE (NEGATIVE); CLARITY,URINE SL CLOUDY; COLOR,URINE YELLOW; GLUCOSE, URINE (UA) NEGATIVE (NEGATIVE); KETONES,URINE NEGATIVE (NEGATIVE); LEUKOCYTE ESTERASE ,URINE NEGATIVE (NEGATIVE); NITRITE,URINE NEGATIVE (NEGATIVE); PROTEIN,URINE TRACE (NEGATIVE)
[2020-10-15 10:18] LABS: ALANINE AMINOTRANSFERASE 9 U/L (0-55); ALBUMIN 3.1 GM/DL (3.2-4.5); ALKALINE PHOSPHATASE 99 U/L (40-136); BILIRUBIN,TOTAL 0.3 MG/DL (0.1-1.0); BUN/CREATININE RATIO 7; CALCIUM 8.7 MG/DL (8.5-10.1); CARBON DIOXIDE 21 MMOL/L (21-32); CHLORIDE 107 MMOL/L (98-107); CREATININE SERUM 0.74 MG/DL (0.60-1.30); GFR ESTIMATED > 60; GLUCOSE 94 MG/DL (70-105); POTASSIUM 3.6 MMOL/L (3.6-5.0); SODIUM 138 MMOL/L (135-145); TOTAL PROTEIN 6.3 GM/DL (6.4-8.2)
[2020-10-15 10:22] LABS: BACTERIA,URINE TRACE /HPF; RBC,URINE >100 /HPF; WBC,URINE RARE /HPF
[2020-10-15 10:23] LABS: CALCIUM OXALATE CRYSTALS,UR RARE /LPF
[2020-10-15] MEDS ORDERED: NS IV 1000 ML 1,000 ML IV SCH (10:45)
[2020-10-15 13:25] VITALS: BP 135/75
[2020-10-15 13:31] VITALS: BP 135/75
--- NOTE | 2020-10-15 13:33 | Diagnostic Imaging Report ---
Renal ultrasound limited. Indication: Right flank pain There are no prior renal ultrasound examinations available for comparison. The right kidney was identified and measures approximately 12.7 x 6.7 x 5.6 cm. There is evidence for a solid renal mass or hydronephrosis of the right kidney. There is no shadowing from the kidney to suggest nephrolithiasis either. The renal cortices are normal in thickness and echogenicity. The bladder contained only a very small amount of urine. The ureteral jet on the right could not be identified. The left kidney was not included on this exam. Impression: 1. There is no acute abnormality of the right kidney, nor is any sign of a solid renal mass. 2. The urinary bladder was not well visualized. Dictated by: Dictated on workstation # [id number]
== END 2020-10-15 14:12 | disposition home or self-care (01) ==
LOC: WSo 08:13 → LDRP 08:23 → WSo 14:12
PROVIDERS: ATTEND Obstetrics & Gynecology
DX: O26.893 Other specified pregnancy related conditions, third trimester (principal); Z3A.36 36 weeks gestation of pregnancy
CPT/HCPCS: 76775; 80053; 81000; 85025; 96360; 96361; G0463; 36415; 99213

== ENCOUNTER → 2020-10-20 | Outpatient (CLI) | payer BC ==
[~2020-10-20] MED LIST changes: +CETI10CA PO; +OMEP40CA27 PO
== END ==
LOC: LAB 11:21
PROVIDERS: ATTEND Obstetrics & Gynecology
DX: R03.0 Elevated blood-pressure reading, without diagnosis of hypertension (principal)
CPT/HCPCS: 82570; 84156

== ENCOUNTER 2020-10-27 05:36 | Outpatient (CLI) | payer BC ==
[~2020-10-27] VITALS: Ht 165.1 cm; Wt 123.2 kg
[2020-10-27] MEDS ORDERED: FERR-84 PO (09:36)
[2020-10-27] MEDS ORDERED: PNV11TAB5 PO (09:36)
[2020-10-27] MEDS ORDERED: FLUT9.9S NS (09:36)
== END 2020-10-27 09:41 | disposition home or self-care (01) ==
LOC: PREOP 05:36
PROVIDERS: ATTEND Obstetrics & Gynecology
DX: Z01.818 Encounter for other preprocedural examination (principal)

== ENCOUNTER 2020-11-01 06:01 | Inpatient (IN) | payer BC ==
[2020-11-01] VITALS (10 sets, daily range): BP systolic 105–137; BP diastolic 56–94
[~2020-11-01] VITALS: Ht 165.1 cm; Wt 124.6 kg
[~2020-11-01 06:01] MED LIST changes: +FERR-84 PO; +FLUT9.9S NS; +PNV11TAB5 PO
[2020-11-01] MEDS ORDERED: LACTATED RINGERS 1,000 ML IV PRN ×2 (06:15)
[2020-11-01] MEDS ORDERED: ceFAZolin 2 GM IV Premixed 50 ML IV ONE (06:15)
[2020-11-01] MEDS ORDERED: CATHETER FLUSH 10 ML SYR IV PRN (06:15)
[2020-11-01] MEDS ORDERED: FAMOTIDINE 20MG/2ML IV (PEPCID) IV ONE (06:15)
[2020-11-01] MEDS ORDERED: CITRIC ACID/SOB CIT (BICITRA) 30 ML UDC PO ONE (06:15)
[2020-11-01] MEDS ORDERED: METOCLOPRAMIDE INJ 10 MG/2 ML (REGLAN) IV ONE (06:15)
[2020-11-01 06:42] LABS: BASOPHILS % (AUTO) 0 % (0-10); EOSINOPHILS # (AUTO) 0.1 10^3/uL (0.0-0.3); EOSINOPHILS % (AUTO) 1 % (0-10); HEMATOCRIT 36 % (35-52); HEMOGLOBIN 12.1 g/dL (11.5-16.0); LYMPHOCYTES # (AUTO) 2.3 10^3/uL (1.0-4.0); LYMPHOCYTES % (AUTO) 25 % (12-44); MEAN CORPUSCULAR HEMOGLOBIN 30 pg (25-34); MEAN CORPUSCULAR HGB CONC 33 g/dL (32-36); MEAN CORPUSCULAR VOLUME 90 fL (80-99); MEAN PLATELET VOLUME 9.3 fL (9.0-12.2); MONOCYTES # (AUTO) 0.5 10^3/uL (0.0-1.0); MONOCYTES % (AUTO) 5 % (0-12); NEUTROPHILS # (AUTO) 6.5 10^3/uL (1.8-7.8); NEUTROPHILS % (AUTO) 69 % (42-75); PLATELET COUNT 313 10^3/uL (130-400); WHITE BLOOD COUNT 9.4 10^3/uL (4.3-11.0)
[2020-11-01] MEDS ORDERED: OXYTOCIN PRE-MIX DRIP 1,000 ML IV ONE (06:50)
[2020-11-01] MEDS ORDERED: fentaNYL INJ 100 MCG/2 ML AMP ONE (06:50)
--- NOTE | 2020-11-01 07:20 | History & Physical-OB ---
OB - Chief Complaint & HPI Date/Time Date of Admission: Date of Admission: Nov 01, 2020 at 06:01 Date seen by a Provider: Nov 01, 2020 Time Seen by a Provider: 07:05 Chief Complaint/History OB-Reason for Admission/Chief: Section Hx : 3 Hx Para: 1 Expected Date of Delivery: Nov 06, 2020 Gestational Age in Weeks: 39 Gestational Age in Days: 2 Indication for : desires repeat Admission Nurse Assessment Rev: Yes History of Labs O pos Antibody neg RI RPR NR HBsAg NR HIV NR GBS neg Allergies and Home Medications Allergies Coded Allergies: acetaminophen (Unverified Allergy, Unknown, 11/01/20) doxycycline (Verified Allergy, Unknown, Rash, 11/01/20) Home Medications Cetirizine HCl 10 Mg Capsule, 10 MG PO DAILY, (Reported) Cyclobenzaprine HCl 10 Mg Tablet, 10 MG PO HS, (Reported) Ferrous Sulfate 325 Mg Tablet, 325 MG PO DAILY, (Reported) Fluticasone Propionate 9.9 Ml [place].susp, 1 SPRAY NS DAILY, (Reported) 1 SPRAY EACH NARE DAILY Levothyroxine Sodium 25 Mcg Tablet, 25 MCG PO DAILY, (Reported) Omeprazole 40 Mg Capsule.dr, 40 MG PO DAILY, (Reported) Ndo305/FA/Omega3/Dha/Fish Oil 1 Each Tab.chew, 1 EACH PO DAILY, (Reported) Patient Home Medication List Home Medication List Reviewed: Yes OB - History Hx of Present Care: Yes Ultrasounds: Normal mid trimester US Obstetrical Complications: None Medical Complications: Other (Nephrolithiasis) Patient Past Medical History hypothyroidism, PCOS, insulin resistance Social History/Family History 2nd Hand Smoke Exposure: No Immunizations Date of Influenza Vaccine: Apr 04, 2016 OB - Admission Exam Physical Exam Vitals: Vital Signs 11/01/20 06:15 Temp 36.9 Pulse 90 Resp 18 Pulse Ox 97 O2 Delivery Room Air HEENT: NCAT Heart: Rhythm Normal Lungs: Clear Abdomen: Gravid Extremities: Normal Reflexes: Normal Heart Rate: 140's Accelerations: Accelerations Present Decelerations: No Decelerations Short Term Variability: Present Snf Variability: Average (6-25) Contractions on Admission: >10 Minutes Apart Intensity: Mild Labs Laboratory Tests Test 11/01/20 06:28 Range/Units White Blood Count 9.4 4.3-11.0 10^3/uL Red Blood Count 4.03 3.80-5.11 10^6/uL Hemoglobin 12.1 11.5-16.0 g/dL Hematocrit 36 35-52 % Mean Corpuscular Volume 90 80-99 fL Mean Corpuscular Hemoglobin 30 25-34 pg Mean Corpuscular Hemoglobin Concent 33 32-36 g/dL Red Cell Distribution Width 14.0 10.0-14.5 % Platelet Count 313 130-400 10^3/uL Mean Platelet Volume 9.3 9.0-12.2 fL Immature Granulocyte % (Auto) 0 % Neutrophils (%) (Auto) 69 42-75 % Lymphocytes (%) (Auto) 25 12-44 % Monocytes (%) (Auto) 5 0-12 % Eosinophils (%) (Auto) 1 0-10 % Basophils (%) (Auto) 0 0-10 % Neutrophils # (Auto) 6.5 1.8-7.8 10^3/uL Lymphocytes # (Auto) 2.3 1.0-4.0 10^3/uL Monocytes # (Auto) 0.5 0.0-1.0 10^3/uL Eosinophils # (Auto) 0.1 0.0-0.3 10^3/uL Basophils # (Auto) 0.0 0.0-0.1 10^3/uL Immature Granulocyte # (Auto) 0.0 0.0-0.1 10^3/uL OB - Assessment/Plan/Diagnosis Assessment Assessment: section Admission Dx 40 yo @39 weeks Previous GBS neg BMI 45 Admission Status: Inpatient Order (span 2 midnights) Reason for Inpatient Admission: Repeat at 39 weeks Plan Plan: Section BELINDA TEJADA DO Nov 01, 2020 07:20
--- NOTE | 2020-11-01 07:23 | Discharge Inst-Women's Service ---
Discharge Inst-Women's Serv Depart Medication/Instructions New, Converted or Re-Newed RX: RX on Chart Final Diagnosis POD 2 RLTCS Problems Reviewed?: Yes Consults/Follow Up Additional Follow Up: Yes Orders/Referrals Dr. Ocampo in 7-10 days Activity Activity: Activity as Tolerated Driving Instructions: No Driving for 1 Week NO SMOKING: NO SMOKING Nothing Inside Vagina: No Douching, No [place], No Tampons Diet Discharge Diet: No Restrictions Symptoms to Report to : Bleeding Excessive, Pain Increased, Fever Over 101 Degrees F, Vaginal Bleeding Increase, Questions/Concerns For Any Problems or Questions: Contact Your Physician Skin/Wound Care Infection Signs and Symptoms: Increased Redness, Foul Odor of Wound, Increased Drainage, Skin Itchy or Has a Rash, Increased Swelling, Temperature Above 101 F Operative Area Clean and Dry: Keep Incision Clean/Dry Stitches/Jeyson/Dermabond: Dermabond, Care of Stitches Bathing Instructions: BELINDA Rebolledo DO Nov 01, 2020 07:23
[2020-11-01] MEDS ORDERED: OXC5T PO (07:24)
[2020-11-01] MEDS ORDERED: DCS100C PO (07:24)
[2020-11-01] MEDS ORDERED: IBUP-844 PO (07:24)
[2020-11-01] MEDS ORDERED: TETANUS,DIPTH,PERTUSS P/F (BOOSTRIX) 0.5 ML VIAL IM SCH (07:30)
[2020-11-01] MEDS ORDERED: MEASLES,MUMPS,RUBELLA 1 EA INJ SC SCH (07:30)
[2020-11-01] MEDS ORDERED: ONDANSETRON 4 MG/2 ML (SDV) Z0FRAN IVP PRN (07:30)
[2020-11-01] MEDS ORDERED: BUPIVACAINE 0.5% 30 ML (SENSORCAINE) VIAL ONE (07:52)
[2020-11-01] MEDS: DOCUSATE SODIUM 100 MG (COLACE) CAP PO SCH ×2 (09:00→21:14)
[2020-11-01] MEDS: KETOROLAC 30 MG/ML VIAL IV SCH ×3 (09:35→21:14)
[2020-11-01] MEDS: OXYTOCIN PRE-MIX DRIP 500 ML IV SCH ×2 (09:35→13:50)
[2020-11-01] MEDS ORDERED: IBUPROFEN 600 MG (MOTRIN) TAB PO SCH (12:00)
[2020-11-01] MEDS ORDERED: CATHETER FLUSH 10 ML SYR IV SCH (14:00)
--- NOTE | 2020-11-01 14:47 | OPERATIVE REPORT ---
DATE OF SERVICE: PREOPERATIVE DIAGNOSES: 1. A 40-year-old G3, P1 at 39 weeks and 2 days gestation. 2. Previous section. 3. Breech presentation. POSTOPERATIVE DIAGNOSES: 1. A 40-year-old G3, P1 at 39 weeks and 2 days gestation. 2. Previous section. 3. Breech presentation. PROCEDURE: Repeat low transverse section. SURGEON: Chucky Ocampo MD MOVEMENT THERAPIST: Nerissa Heller DNP, was necessary for manipulation and retraction throughout the procedure. ANESTHESIA: Spinal. ESTIMATED BLOOD LOSS: 600 mL. URINE OUTPUT: 50 mL clear at the end of the procedure. FLUIDS: 1600 mL lactated Ringer's solution. FINDINGS: A live male infant weighing 7 pounds 11 ounces, Apgars of 8 and 9. Grossly normal appearing uterus, bilateral fallopian tubes and ovaries. SPECIMEN SENT: None. INDICATIONS FOR PROCEDURE: This 40-year-old female is a patient who had sought care in my office. Her care was uncomplicated with the exception of kidney stones in the third trimester and a complete breech presentation. With her history of previous , we discussed just proceeding with repeat . She was agreeable to do this. Risks of the procedure was once again reviewed with the patient in her preoperative visit as well as in the preoperative area. Risks of bleeding, infection, damage to surrounding structures including, but not limited to bowel, bladder, ureter, kidneys, possible need for operation, postoperative complications that could occur, risk from anesthesia, recovery timeframe and even were all discussed with the patient. After all of her questions were answered, consent was obtained in the preoperative area, the patient was taken to the operating room. OPERATIVE REPORT IN DETAIL: Once in the operating room, spinal analgesia was found to be adequate. She was placed in supine position with leftward tilt, prepped and draped in normal sterile fashion. Timeout was performed and anesthesia was then tested. I then make a Pfannenstiel skin incision through a previously existing scar using knife and carried down to underlying fascia using Bovie cautery. Fascial incision extended laterally using Bovie cautery. Superior aspect of fascial incision was then grasped with Holly clamps, tented up and dissected off the underlying rectus muscles. The inferior aspect of fascial incision was then grasped with Holly clamps, tented up and dissected off the underlying rectus muscles. Rectus muscles were then dissected down the midline using sharp and blunt dissection, which exposed the peritoneum, which I entered bluntly and extended using blunt traction. Alex ring retractor was placed in the peritoneal incision, which offers excellent lateral sidewall retraction. I identified the lower uterine segment, found to be thinned out and make a low transverse incision to the vesicouterine peritoneum and bluntly dissected off the lower uterine segment, creating a bladder flap. I then proceeded with my myotomy until membranes were visualized, at which point, the uterine incision laterally and superiorly using bandage scissors. Amniotomy was performed using Allis clamp. Clear fluid was noted. The infant was found in the complete breech presentation. The feet are first delivered up to the buttocks. Once the buttocks were delivered, the infant was rotated to be facing downward and delivered up to the upper torso. The arms were then delivered by sweeping them across the chest and then by elevating the 's body into the air and flexing the head through the incision. The head was delivered through the incision. The nares and oropharynx were then bulb suctioned. Infant was put on the operative field where the cord was duly clamped and cut and infant was handed off to waiting nurses in attendance. Cord blood was collected, 3-vessel cord with intact placenta was delivered spontaneously thereafter. IV Pitocin was initiated to facilitate uterine contraction. Uterine fundus confirmed by manual massage. Uterus was then exteriorized and cleared of all endometrial clots and debris. I then proceeded with closing the uterine incision using 0 Vicryl suture in running locked fashion. Second layer of imbricating 0 Monocryl was placed. Excellent hemostasis was noted after doing this. I then placed the uterus back within the pelvis and copiously irrigated the pelvis using normal saline. Once again, there was no active bleeding noted from any of my dissection planes. I placed Interceed antiadhesive over my low transverse incision. I removed the Alex ring retractor and then proceeded with closing the peritoneum using 3-0 Vicryl suture in running fashion. Rectus muscles were reapproximated using 3-0 Vicryl suture in interrupted fashion. The fascia was reapproximated using 0 Vicryl suture in running fashion. Subcutaneous tissue was reapproximated using 3-0 plain in interrupted subcutaneous stitch and skin reapproximated using 4-0 Monocryl in running subcuticular. Dermabond was applied to incision and sterile dressing with adhesive white tape. The patient tolerated the procedure well and was taken to recovery area in stable condition. Lap and sponge counts were correct at the end of the procedure. Instrument counts correct as well. Two grams of Ancef given preoperatively for infection prophylaxis. Job ID: [id number] DocumentID: [id number] Dictated Date: 11/01/2020 08:35:55 [employer] Jo[employer] Supervisor Date: 11/01/2020 14:47:02 Dictated By: DO ALLEN JOHNSON
[2020-11-02 03:01] VITALS: BP 143/74
[2020-11-02] MEDS: KETOROLAC 30 MG/ML VIAL IV SCH (03:05)
[2020-11-02 05:55] LABS: BASOPHILS % (AUTO) 0 % (0-10); EOSINOPHILS # (AUTO) 0.1 10^3/uL (0.0-0.3); EOSINOPHILS % (AUTO) 1 % (0-10); HEMATOCRIT 33 % (35-52); HEMOGLOBIN 11.2 g/dL (11.5-16.0); LYMPHOCYTES # (AUTO) 2.1 10^3/uL (1.0-4.0); LYMPHOCYTES % (AUTO) 19 % (12-44); MEAN CORPUSCULAR HEMOGLOBIN 31 pg (25-34); MEAN CORPUSCULAR HGB CONC 34 g/dL (32-36); MEAN CORPUSCULAR VOLUME 91 fL (80-99); MONOCYTES # (AUTO) 0.5 10^3/uL (0.0-1.0); MONOCYTES % (AUTO) 4 % (0-12); NEUTROPHILS # (AUTO) 8.1 10^3/uL (1.8-7.8); NEUTROPHILS % (AUTO) 75 % (42-75); PLATELET COUNT 278 10^3/uL (130-400); WHITE BLOOD COUNT 10.8 10^3/uL (4.3-11.0)
[2020-11-02] MEDS: LEVOTHYROXINE 25 MCG (LEVOTHROID) TAB PO SCH (06:24)
--- NOTE | 2020-11-02 08:29 | Postpartum Progress Note ---
Note Note Day # 1 Subjective: Patient is without complaints. Ambulating, voiding. Tolerating a regular diet without nausea or vomiting. Normal lochia. Pain is well controlled with oral pain medications. Objective: Physical Exam: General - Alert and oriented, no apparent distress Abdomen - Soft, appropriately tender to palpation, non-distended, fundus firm at umbilicus Extremities - no edema, negative Devonte's bilaterally Incision- c/d/i Assessment: POD 1 RLTCS Acute blood loss anemia Plan: Routine care. Encourage breast feeding. Encourage ambulation. Ferrous sulfate supplementation. Plan for discharge tomorrow Vitals - Labs Vital Signs - I&O Vital Signs Date Time Temp Pulse Resp B/P (MAP) Pulse Ox O2 Delivery O2 Flow Rate FiO2 11/02/20 03:01 36.7 85 18 143/74 (97) 96 Room Air 11/01/20 23:08 36.6 84 20 135/64 (87) 97 Room Air 11/01/20 18:40 36.9 82 18 137/74 (95) 98 Room Air 11/01/20 13:52 36.2 97 18 135/65 (88) Room Air 11/01/20 10:15 36.7 78 18 112/56 (74) 99 Room Air 11/01/20 09:29 Room Air 11/01/20 09:29 36.8 18 123/94 (104) 99 Room Air 11/01/20 09:15 Room Air 11/01/20 09:15 36.9 16 123/94 (104) 98 Room Air 11/01/20 09:00 36.2 18 108/88 (95) 99 Room Air 11/01/20 09:00 Room Air 11/01/20 08:45 Room Air 11/01/20 08:45 36.6 16 127/85 (99) 99 Room Air 11/01/20 08:30 36.9 16 105/84 (91) 98 Room Air 11/01/20 08:30 Room Air I & O 11/02/20 07:00 Intake Total 2350 ml Output Total 2720 ml Balance -370 ml Labs Laboratory Tests 11/02/20 05:45: White Blood Count 10.8, Red Blood Count 3.64L, Hemoglobin 11.2L, Hematocrit 33L, Mean Corpuscular Volume 91, Mean Corpuscular Hemoglobin 31, Mean Corpuscular Hemoglobin Concent 34, Red Cell Distribution Width 14.1, Platelet Count 278, Mean Platelet Volume 9.0, Immature Granulocyte % (Auto) 0, Neutrophils (%) (Auto) 75, Lymphocytes (%) (Auto) 19, Monocytes (%) (Auto) 4, Eosinophils (%) (Auto) 1, Basophils (%) (Auto) 0, Neutrophils # (Auto) 8.1H, Lymphocytes # ( Auto) 2.1, Monocytes # (Auto) 0.5, Eosinophils # (Auto) 0.1, Basophils # (Auto) 0.0, Immature Granulocyte # (Auto) 0.0 BELINDA TEJADA DO Nov 02, 2020 08:29
[2020-11-02] MEDS: DOCUSATE SODIUM 100 MG (COLACE) CAP PO SCH ×2 (08:44→20:53)
[2020-11-02] MEDS: IBUPROFEN 600 MG (MOTRIN) TAB PO SCH ×3 (08:44→20:53)
[2020-11-02 08:46] VITALS: BP 140/76
--- NOTE | 2020-11-02 11:57 | Anesthesia-Regional Post-Op ---
Regional Patient Condition Mental Status: Alert, Oriented x3 Circulation: Same as Pre-Op Headache: Absent Sensation: Full Recovery Motor Block: Absent Post Op Complications Complications None Follow Up Care/Instructions Patient Instructions None needed. Anesthesia/Patient Condition Patient is doing well, no complaints, stable vital signs, no apparent adverse anesthesia problems. No complications reported per nursing. TOO CHRISTOPHER CRNA Nov 02, 2020 11:57
[2020-11-02 13:15] VITALS: BP 134/80
[2020-11-02 17:15] VITALS: BP 158/83
[2020-11-02 20:00] VITALS: BP 144/72
[2020-11-03 01:53] VITALS: BP 141/70
[2020-11-03] MEDS: IBUPROFEN 600 MG (MOTRIN) TAB PO SCH ×2 (04:01→09:42)
[2020-11-03] MEDS: LEVOTHYROXINE 25 MCG (LEVOTHROID) TAB PO SCH (06:44)
--- NOTE | 2020-11-03 08:32 | Postpartum Progress Note ---
Note Note Day # 2 Subjective: Patient is without complaints. Ambulating, voiding. Tolerating a regular diet without nausea or vomiting. Normal lochia. Pain is well controlled with oral pain medications. Objective: Physical Exam: General - Alert and oriented, no apparent distress Abdomen - Soft, appropriately tender to palpation, non-distended, fundus firm at umbilicus Extremities - no edema, negative Devonte's bilaterally Incision- c/d/i Assessment: POD 2 RLTCS Plan: Routine care. Encourage breast feeding. Encourage ambulation. Ferrous sulfate supplementation. Plan for discharge today Vitals - Labs Vital Signs - I&O Vital Signs Date Time Temp Pulse Resp B/P (MAP) Pulse Ox O2 Delivery O2 Flow Rate FiO2 11/03/20 01:53 36.0 92 20 141/70 (93) 96 Room Air 11/02/20 20:00 36.8 91 20 144/72 (96) 96 Room Air 11/02/20 17:15 36.9 98 18 158/83 (108) 97 Room Air 11/02/20 13:15 37.0 108 18 134/80 (98) 97 Room Air 11/02/20 08:46 36.8 88 18 140/76 (97) 97 Room Air I & O 11/03/20 07:00 Intake Total 1300 ml Output Total 1300 ml Balance 0 ml Labs Microbiology 11/01/20 MRSA Screen - Final, Complete MRSA not isolated BELINDA TEJADA 16, 2021 8:32 am
[2020-11-03 09:38] VITALS: BP 140/76
[2020-11-03] MEDS: DOCUSATE SODIUM 100 MG (COLACE) CAP PO SCH (09:42)
== END 2020-11-03 12:10 | disposition home or self-care (01) | DRG 787 ==
LOC: LDRP 06:01
PROVIDERS: ADMIT Obstetrics & Gynecology; ATTEND Obstetrics & Gynecology
PROC: 10D00Z1 Extraction of Products of Conception, Low, Open Approach (ICD-10-PCS; principal; 2020-11-01 07:16)
DX: O34.211 Maternal care for low transverse scar from previous cesarean delivery (principal); D62 Acute posthemorrhagic anemia; O64.1XX0 Obstructed labor due to breech presentation, not applicable or unspecified; O90.81 Anemia of the puerperium; O99.283 Endocrine, nutritional and metabolic diseases complicating pregnancy, third trimester; E03.9 Hypothyroidism, unspecified; Z37.0 Single live birth; Z3A.39 39 weeks gestation of pregnancy
CPT/HCPCS: 36415; 85025; 86850; 86900; 86901; 87081; 94664